=== PATIENT | male | born 1990 | race Caucasian/White ===

== ENCOUNTER 2016-12-01 13:26 | Inpatient (IN) | payer OTHER ==
[2016-12-01 13:38] VITALS: BMI 20.5
--- NOTE | 2016-12-01 14:01 | HP ---
COWS - Scale Resting Pulse: 1= [place] 81-100 Sweatin= Chills/Flushing Restless Observation: 1= Difficult to Sit Still Pupil Size: 0= Normal to Room Light Bone or Joint Aches: 2= Severe Diffuse Aches Runny Nose/ Eye Tearin= Nasal Congestion GI Upset > 30mins: 2= Nausea/Diarrhea Tremor Observation: 1= Tremor [place], Not Seen Yawning Observation: 1= 1-2x During Session Anxiety or Irritability: 1=Feels Anxious/Irritable Goose Flesh Skin: 3=Piloerection COWS Score: 14 Admission ROS BHS - HPI Chief Complaint: I want to stop, maybe go back on suboxone Allergies/Adverse Reactions: Allergies Allergy/AdvReac Type Severity Reaction Status Date / Time codeine Allergy Mild Rash Verified 12/01/16 13:53 History of Present Illness: 26 yo gentleman here for detox from opiates - history of previous detox and rehab, previous treatment with suboxone for 1.5 years and did well but then went to college and program was too far to get to easily and he relapsed. No seizures. Lost about thirty to forty pounds in last few months due to drug use. Exam Limitations: Clinical Condition - Ebola screening Have you traveled outside of the country in the last 21 days: No Have you had contact with anyone from an Ebola affected area: No Have you been sick,other than usual withdrawal symptoms: No Do you have a fever: No - Review of Systems Constitutional: Loss of Appetite, Malaise, Night Sweats, Changes in sleep, Unintentional Wgt. Loss EENT: reports: Nose Congestion Respiratory: reports: No Symptoms reported Cardiac: reports: No Symptoms Reported GI: reports: Poor Appetite, Indigestion : reports: No Symptoms Reported Musculoskeletal: reports: Back Pain, Muscle Pain Integumentary: reports: Rash (mild rash both antecubital space (states due to shooting up)), Other Neuro: reports: Headache Endocrine: reports: No Symptoms Reported Hematology: reports: No Symptoms Reported Psychiatric: reports: Judgement Intact, Mood/Affect Appropiate, Orientated x3, Anxious Other Systems: Reviewed and Negative Patient History - Patient Medical History Hx Anemia: No Hx Asthma: No Hx Chronic Obstructive Pulmonary Disease (COPD): No Hx Cancer: No Hx Cardiac Disorders: No Hx Congestive Heart Failure: No Hx Hypertension: No Hx Hypercholesterolemia: No Hx Pacemaker: No HX Cerebrovascular Accident: No Hx Seizures: No Hx Dementia: No Hx Diabetes: No Hx Gastrointestinal Disorders: No Hx Liver Disease: No Hx Genitourinary Disorders: Yes (hx renal calculi) Hx Sexually Transmitted Disorders: No Hx Renal Disease (ESRD): No Hx Thyroid Disease: No Hx Human Immunodeficiency Virus (HIV): No Hx Hepatitis C: No (not sure) Hx Depression: Yes (hx anxiety ) Hx Suicide Attempt: No Hx Bipolar Disorder: No Hx Schizophrenia: No - Patient Surgical History Past Surgical History: Yes Other Surgical History: lithotritpsy hears ago - PPD History Previous Implant?: Yes Documented Results: Negative w/proof Implanted On Prior [facility] Admission?: No PPD to be Administered?: Yes - Reproductive History Patient is a Female of Child Bearing Age (11 -55 yrs old): No (male) - Smoking Cessation Smoking history: Current every day smoker Have you smoked in the past 12 months: Yes Aproximately how many cigarettes per day: 10 Initiated information on smoking cessation: Yes 'Breaking Loose' booklet given: 12/01/16 (give on floor) - Substance & Tx. History Hx Alcohol Use: No Hx Substance Use: Yes Substance Use Type: Heroin Hx Substance Use Treatment: Yes (hx detox, rehab, suboxone) - Substances Abused Heroin Route: Injection Frequency: Daily Amount used: 20 bags Age of first use: 19 Date of Last Use: 11/30/16 Family Disease History - Family Disease History Family Disease History: Diabetes: Brother, Heart Disease: Father (alive, etoh), Other: Father, Mother (alive, ) Admission Physical Exam S - Vital Signs Vital Signs: Vital Signs - 24 hr 12/01/16 13:35 Temperature 99.0 F Pulse Rate 84 Respiratory 18 Rate Blood Pressure 122/77 - Physical General Appearance: Yes: Nourished, Appropriately Dressed, Mild Distress, Thin, Anxious HEENTM: Yes: Hearing grossly Normal, Normocephalic, Normal Voice, Nasal Congestion Respiratory: Yes: Normal Breath Sounds, No Respiratory Distress Neck: Yes: No masses,lesions,Nodules, Supple Breast: Yes: Breast Exam Deferred Cardiology: Yes: Regular Rhythm, Regular Rate Abdominal: Yes: Flat, Soft Genitourinary: Yes: Within Normal Limits Back: Yes: Normal Inspection Musculoskeletal: Yes: full range of Motion, Gait Steady Extremities: Yes: Normal Inspection, Non-Tender Neurological: Yes: Fully Oriented, Alert, Normal Mood/Affect Integumentary: Yes: Normal Color, Warm, Rash, Track [place] Lymphatic: Yes: Within Normal Limits (faint erythematous rash at sites of injection both arms antecubital space) - Diagnostic (1) Opioid dependence with withdrawal Current Visit: Yes Status: Chronic (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
[2016-12-01] MEDS ORDERED: MENTHOL/PHENOL 1 EACH UD MM PRN (14:04)
[2016-12-01] MEDS ORDERED: MAG HYDROX/AL HYDROX/SIMETH 30 ML UNIT-DOSE CUP PO PRN (14:04)
[2016-12-01] MEDS ORDERED: MAGNESIUM HYDROX 2400MG/30ML ORAL SUSPENSION 30 ML CUP PO PRN (14:04)
[2016-12-01] MEDS ORDERED: guaiFENesin/D-METHORPHAN HB 10 ML UNIT-DOSE CUPS PO PRN (14:04)
[2016-12-01] MEDS ORDERED: LOPERAMIDE HCL 2 MG CAPSULE PO PRN (14:04)
[2016-12-01] MEDS ORDERED: P-EPHED 60MG/TRIPROLIDI 2.5MG TABLET PO PRN (14:04)
[2016-12-01] MEDS ORDERED: ACETAMINOPHEN 325 MG TABLET (FP) PO PRN (14:04)
[2016-12-01] MEDS ORDERED: IBUPROFEN 400 MG TABLET (FP) PO PRN (14:04)
[2016-12-01] MEDS ORDERED: MAGNESIUM CITRATE 300 ML BOTTLE PO PRN (14:04)
[2016-12-01] MEDS ORDERED: METHADONE HCL 10 MG TABLET (FOR DETOX USE ONLY) PO ONE ×2 (14:30→23:00)
[2016-12-01] MEDS: diazePAM 5 MG TABLET PO PRN ×2 (14:57→19:22)
[2016-12-01] MEDS: hydrOXYzine PAMOATE 50 MG CAPSULE (FP) PO PRN (17:24)
[2016-12-01 19:28] LABS: URINE APPEARANCE CLEAR; URINE BILIRUBIN NEGATIVE (NEGATIVE); URINE BLOOD NEGATIVE (NEGATIVE); URINE COLOR YELLOW; URINE GLUCOSE (UA) NEGATIVE (NEGATIVE); URINE KETONE NEGATIVE (NEGATIVE); URINE LEUK ESTERASE NEGATIVE (NEGATIVE); URINE NITRITE NEGATIVE (NEGATIVE); URINE PROTEIN NEGATIVE (NEGATIVE); URINE UROBILINOGEN NEGATIVE E.U./dl (0.2-1.0)
[2016-12-01] MEDS: THIAMINE HCL 100 MG TABLET (FP) PO SCH (22:28)
[2016-12-02] MEDS: diazePAM 5 MG TABLET PO PRN ×5 (05:26→22:47)
[2016-12-02] MEDS ORDERED: METHADONE HCL 10 MG TABLET (FOR DETOX USE ONLY) PO ONE (10:00)
[2016-12-02] MEDS: PRENATAL VITAMINS W/ FOLIC ACID TABLET (FP) PO SCH (10:24)
[2016-12-02] MEDS: NICOTINE POLACRILEX 4 MG GUM BUC PRN ×6 (10:24→20:35)
[2016-12-02 10:50] LABS: MCH 27.9 pg (25.7-33.7); MCHC 33.5 g/dl (32.0-35.9); MEAN CELL VOLUME 83.2 fl (80-96); MEAN PLT VOLUME 9.3 fl (7.5-11.1); PLATELET COUNT 244 K/MM3 (134-434); RDW 13.9 % (11.9-15.9); WHITE BLOOD COUNT 5.6 K/mm3 (4.0-10.0)
[2016-12-02 11:04] LABS: ALBUMIN 3.7 g/dl (3.4-5.0); ANION GAP 8 (8-16); CALCIUM 9.1 mg/dL (8.5-10.1); CO2 28 mmol/L (21-32); CREATININE 0.7 mg/dL (0.7-1.3); GLUCOSE,RANDOM 76 mg/dL (74-106); SGOT/AST 29 U/L (15-37); SGPT/ALT 69 U/L (12-78)
[2016-12-02 11:05] LABS: ALK PHOS 66 U/L (45-117); BILIRUBIN,TOTAL 0.3 mg/dL (0.2-1.0)
--- NOTE | 2016-12-02 11:16 | PN ---
BHS COWS - Scale Resting Pulse: 0= [place] 80 or Below Sweatin=Flushed/Facial Moisture Restless Observation: 1= Difficult to Sit Still Pupil Size: 0= Normal to Room Light Bone or Joint Aches: 2= Severe Diffuse Aches Runny Nose/ Eye Tearin= Runny Nose/Eyes GI Upset > 30mins: 2= Nausea/Diarrhea Tremor Observation of Outstretched Hands: 2= Slight Tremor Visible Yawning Observation: 1= 1-2x During Session Anxiety or Irritability: 2=Irritable/Anxious Goose Flesh Skin: 0=Smooth Skin COWS Score: 14 BHS Progress Note (SOAP) Subjective: Anxiety,nausea,muscle aches/spasm,restless,interrupted sleep Objective: 12/02/16 11:15 Vital Signs - 8 hr 12/02/16 12/02/16 12/02/16 03:32 06:24 09:36 Temperature 96.2 F L 97.2 F L Pulse Rate 72 65 Respiratory 18 16 16 Rate Blood Pressure 104/74 102/73 Laboratory Tests 12/01/16 12/02/16 12/02/16 17:55 07:30 07:30 WBC 5.6 RBC 4.95 Hgb 13.8 Hct 41.2 MCV 83.2 MCHC 33.5 RDW 13.9 Plt Count 244 MPV 9.3 Sodium 140 Potassium 4.4 Chloride 104 Carbon Dioxide 28 Anion Gap 8 BUN 15 Creatinine 0.7 Creat Clearance w eGFR > 60 Random Glucose 76 Calcium 9.1 AST 29 ALT 69 Albumin 3.7 Urine Color Yellow Urine Appearance Clear Urine pH 6.0 Ur Specific [place] 1.024 Urine Protein Negative Urine Glucose (UA) Negative Urine Ketones Negative Urine Blood Negative Urine Nitrite Negative Urine Bilirubin Negative Urine Urobilinogen Negative Ur Leukocyte Esterase Negative labs noted Assessment: 12/02/16 11:16 Withdrawal sx. Plan: Continue detox
[2016-12-02] MEDS: diphenhydrAMINE HCL 50 MG CAPSULE PO PRN (22:29)
[2016-12-02] MEDS: THIAMINE HCL 100 MG TABLET (FP) PO SCH (22:29)
[2016-12-02] MEDS: NICOTINE 14 MG/24 HOURS TOPICAL PATCH TD SCH (22:29)
--- NOTE | 2016-12-02 22:31 | EKG ---
Test Reason : Blood Pressure : / mmHG Vent. Rate : 072 BPM Atrial Rate : 072 BPM P-R Int : 140 ms QRS Dur : 088 ms QT Int : 380 ms P-R-T Axes : 049 043 026 degrees QTc Int : 416 ms NORMAL SINUS RHYTHM NORMAL ECG NO PREVIOUS ECGS AVAILABLE Confirmed by ANUJ CHASE MD ([id number]) on 12/02/2016 10:31:52 PM Referred By: Confirmed By:ANUJ CHASE MD
[2016-12-03] MEDS: diazePAM 5 MG TABLET PO PRN ×4 (05:32→20:54)
[2016-12-03] MEDS: NICOTINE POLACRILEX 4 MG GUM BUC PRN ×6 (07:38→23:50)
[2016-12-03] MEDS ORDERED: METHADONE HCL 5 MG TABLET (FOR DETOX USE ONLY) PO ONE (10:00)
[2016-12-03] MEDS ORDERED: ONDANSETRON *ODT* 4 MG TABLET SL PRN (10:15)
[2016-12-03] MEDS: PRENATAL VITAMINS W/ FOLIC ACID TABLET (FP) PO SCH (10:19)
[2016-12-03] MEDS: NICOTINE 14 MG/24 HOURS TOPICAL PATCH TD SCH (10:20)
--- NOTE | 2016-12-03 10:20 | PN ---
BHS COWS - Scale Resting Pulse: 1= [place] 81-100 Sweatin=Flushed/Facial Moisture Restless Observation: 1= Difficult to Sit Still Pupil Size: 0= Normal to Room Light Bone or Joint Aches: 2= Severe Diffuse Aches Runny Nose/ Eye Tearin= Runny Nose/Eyes GI Upset > 30mins: 2= Nausea/Diarrhea Tremor Observation of Outstretched Hands: 2= Slight Tremor Visible Yawning Observation: 1= 1-2x During Session Anxiety or Irritability: 2=Irritable/Anxious Goose Flesh Skin: 0=Smooth Skin COWS Score: 15 BHS Progress Note (SOAP) Subjective: Sweating,anxiety,tremors,interrupted sleep,restless. Objective: 12/03/16 10:19 Vital Signs - 8 hr 12/03/16 12/03/16 03:49 06:14 Temperature 96.1 F L Pulse Rate 85 Respiratory 18 16 Rate Blood Pressure 104/70 Laboratory Tests 12/01/16 12/02/16 12/02/16 17:55 07:30 07:30 WBC 5.6 RBC 4.95 Hgb 13.8 Hct 41.2 MCV 83.2 MCHC 33.5 RDW 13.9 Plt Count 244 MPV 9.3 Sodium 140 Potassium 4.4 Chloride 104 Carbon Dioxide 28 Anion Gap 8 BUN 15 Creatinine 0.7 Creat Clearance w eGFR > 60 Random Glucose 76 Calcium 9.1 Total Bilirubin 0.3 AST 29 ALT 69 Alkaline Phosphatase 66 Total Protein 7.0 Albumin 3.7 Urine Color Yellow Urine Appearance Clear Urine pH 6.0 Ur Specific [place] 1.024 Urine Protein Negative Urine Glucose (UA) Negative Urine Ketones Negative Urine Blood Negative Urine Nitrite Negative Urine Bilirubin Negative Urine Urobilinogen Negative Ur Leukocyte Esterase Negative RPR Titer 12/02/16 07:30 WBC RBC Hgb Hct MCV MCHC RDW Plt Count MPV Sodium Potassium Chloride Carbon Dioxide Anion Gap BUN Creatinine Creat Clearance w eGFR Random Glucose Calcium Total Bilirubin AST ALT Alkaline Phosphatase Total Protein Albumin Urine Color Urine Appearance Urine pH Ur Specific [place] Urine Protein Urine Glucose (UA) Urine Ketones Urine Blood Urine Nitrite Urine Bilirubin Urine Urobilinogen Ur Leukocyte Esterase RPR Titer Nonreactive labs noted Assessment: 12/03/16 10:20 Withdrawal sx. Plan: Continue detox
[2016-12-03] MEDS ORDERED: ONDANSETRON *ODT* 4 MG TABLET SL ONE (10:41)
--- NOTE | 2016-12-03 11:13 | CONSULT ---
[facility] Psychiatric Consult - Data Date of interview: 12/03/16 Admission source: [facility] Identifying data: First admission to [facility] for this 26 y/o male seeking detox treatment for heroin dependence.Patient is single without children ,domiciled and currently unemployed.No financial assistance reported. Substance Abuse History: - Smoking Cessation. Smoking history: Current every day smoker. Have you smoked in the past 12 months: Yes. Aproximately how many cigarettes per day: 10. Initiated information on smoking cessation: Yes. ' Breaking Loose' booklet given: 12/01/16 (give on floor). - Substance & Tx. History. Hx Alcohol Use: No. Hx Substance Use: Yes. Substance Use Type: Heroin. Hx Substance Use Treatment: Yes (hx detox, rehab, suboxone). - Substances Abused. Heroin. Route: Injection. Frequency: Daily. Amount used: 20 bags. Age of first use: 19. Date of Last Use: 11/30/16. Confirmed by patient. Medical History: History of GERD and renal calculi. Psychiatric History: No history of psychiatric hospitalizations.Brief contact with Psychiatry ([facility]D care) approximately eight years ago to address anxiety under a regimen of benzodiazepines (klonopin later replaced with xanax).Lost to follow up.Mr Payne indicates that he has not been managed by psychiatrists/ therapists for years with the exception of a short period of suboxone maintenance.Instead,he reportedly immersed himself deeper into heroin abuse.Patient denies history of suicide attempts. Physical/Sexual Abuse/Trauma History: Patient denies. Additional Comment: Urine Drug Screen Results: OPI-Opiates.Noted. Mental Status Exam - Mental Status Exam Alert and Oriented to: Time, Place, Person Cognitive Function: Good Patient Appearance: Well Groomed Mood: Withdrawn, Anxious, Apprehensive Affect: Mood Congruent Patient Behavior: Fatigued, Appropriate, Cooperative (well mannered) Speech Pattern: Clear, Appropriate (articulate) Voice Loudness: Normal Thought Process: Goal Oriented Thought Disorder: Not Present Hallucinations: Denies Suicidal Ideation: Denies Homicidal Ideation: Denies Insight/Judgement: Poor Sleep: Poorly, Difficulty falling asleep Appetite: Fair Muscle strength/Tone: Normal Gait/Station: Normal Psychiatric Findings - Problem List ([place] 1, 2,3) (1) Opioid dependence with withdrawal Current Visit: Yes Status: Acute (2) Nicotine dependence Current Visit: Yes Status: Acute Qualifiers: Nicotine product type: cigarettes Substance use status: uncomplicated Qualified Code(s): F17.210 - Nicotine dependence, cigarettes, uncomplicated (3) Substance induced mood disorder Current Visit: Yes Status: Acute (4) Renal calcinosis Current Visit: Yes Status: Chronic (5) Insomnia Current Visit: Yes Status: Acute - Initial Treatment Plan Initial Treatment Plan: Psychoeducation.Detoxification in progress.Insomnia is addressed with remeron 15 mg po hs.Side effects/benefits discussed with the patient.Patient agrees with this careplan.Observation.
[2016-12-03] MEDS: cloNIDine HCL 0.1 MG TABLET PO SCH ×2 (11:38→22:19)
[2016-12-03] MEDS: hydrOXYzine PAMOATE 50 MG CAPSULE (FP) PO PRN ×2 (14:54→19:42)
[2016-12-03] MEDS: MIRTAZAPINE 15 MG TABLET (FP) PO SCH (22:19)
[2016-12-03] MEDS: THIAMINE HCL 100 MG TABLET (FP) PO SCH (22:19)
[2016-12-03] MEDS: diphenhydrAMINE HCL 50 MG CAPSULE PO PRN (22:19)
[2016-12-04] MEDS: diazePAM 5 MG TABLET PO PRN ×3 (01:57→10:13)
[2016-12-04] MEDS: NICOTINE POLACRILEX 4 MG GUM BUC PRN ×6 (05:50→22:23)
[2016-12-04] MEDS ORDERED: METHADONE HCL 5 MG TABLET (FOR DETOX USE ONLY) PO ONE (10:00)
[2016-12-04] MEDS: NICOTINE 14 MG/24 HOURS TOPICAL PATCH TD SCH (10:13)
[2016-12-04] MEDS: PRENATAL VITAMINS W/ FOLIC ACID TABLET (FP) PO SCH (10:13)
[2016-12-04] MEDS: cloNIDine HCL 0.1 MG TABLET PO SCH ×2 (10:14→22:21)
--- NOTE | 2016-12-04 10:38 | PN ---
BHS Progress Note (SOAP) Subjective: Sweating,interrupted sleep,restless Objective: 12/04/16 10:36 Vital Signs - 8 hr 12/04/16 12/04/16 12/04/16 03:24 06:02 09:29 Temperature 97.5 F L 96.8 F L Pulse Rate 94 H 90 Respiratory 18 18 20 Rate Blood Pressure 98/69 100/71 Laboratory Tests 12/01/16 12/02/16 12/02/16 17:55 07:30 07:30 WBC 5.6 RBC 4.95 Hgb 13.8 Hct 41.2 MCV 83.2 MCHC 33.5 RDW 13.9 Plt Count 244 MPV 9.3 Sodium Potassium Chloride Carbon Dioxide Anion Gap BUN Creatinine Creat Clearance w eGFR Random Glucose Calcium Total Bilirubin AST ALT Alkaline Phosphatase Total Protein Albumin Urine Color Yellow Urine Appearance Clear Urine pH 6.0 Ur Specific [place] 1.024 Urine Protein Negative Urine Glucose (UA) Negative Urine Ketones Negative Urine Blood Negative Urine Nitrite Negative Urine Bilirubin Negative Urine Urobilinogen Negative Ur Leukocyte Esterase Negative RPR Titer Hepatitis C Antibody 0.2 12/02/16 12/02/16 07:30 07:30 WBC RBC Hgb Hct MCV MCHC RDW Plt Count MPV Sodium 140 Potassium 4.4 Chloride 104 Carbon Dioxide 28 Anion Gap 8 BUN 15 Creatinine 0.7 Creat Clearance w eGFR > 60 Random Glucose 76 Calcium 9.1 Total Bilirubin 0.3 AST 29 ALT 69 Alkaline Phosphatase 66 Total Protein 7.0 Albumin 3.7 Urine Color Urine Appearance Urine pH Ur Specific [place] Urine Protein Urine Glucose (UA) Urine Ketones Urine Blood Urine Nitrite Urine Bilirubin Urine Urobilinogen Ur Leukocyte Esterase RPR Titer Nonreactive Hepatitis C Antibody labs noted Assessment: 12/04/16 10:36 Withdrawal sx. Plan: Continue detox
[2016-12-04] MEDS ORDERED: NICOTINE 21 MG/24 HOURS TOPICAL PATCH TD SCH (11:01)
[2016-12-04] MEDS: CYCLOBENZAPRINE HCL 10 MG TABLET (FP) PO SCH ×2 (14:34→22:21)
[2016-12-04] MEDS: hydrOXYzine PAMOATE 50 MG CAPSULE (FP) PO PRN ×2 (17:09→22:21)
[2016-12-04] MEDS: MIRTAZAPINE 15 MG TABLET (FP) PO SCH (22:21)
[2016-12-04] MEDS: THIAMINE HCL 100 MG TABLET (FP) PO SCH (22:21)
[2016-12-05] MEDS: CYCLOBENZAPRINE HCL 10 MG TABLET (FP) PO SCH ×3 (06:20→22:29)
[2016-12-05] MEDS ORDERED: METHADONE HCL 10 MG TABLET (FOR DETOX USE ONLY) PO ONE (10:00)
[2016-12-05] MEDS: cloNIDine HCL 0.1 MG TABLET PO SCH ×2 (10:36→22:29)
[2016-12-05] MEDS: NICOTINE POLACRILEX 4 MG GUM BUC PRN ×3 (10:37→20:25)
[2016-12-05] MEDS: hydrOXYzine PAMOATE 50 MG CAPSULE (FP) PO PRN ×2 (10:37→16:41)
[2016-12-05] MEDS: PRENATAL VITAMINS W/ FOLIC ACID TABLET (FP) PO SCH (10:38)
--- NOTE | 2016-12-05 17:03 | PN ---
BHS Progress Note (SOAP) Subjective: Sweating,interrupted sleep,restless,muscle aches/spasm Objective: 12/05/16 17:02 Vital Signs - 8 hr 12/05/16 12/05/16 09:22 13:12 Temperature 97.6 F 97.8 F Pulse Rate 96 H 98 H Respiratory 20 18 Rate Blood Pressure 104/65 100/74 Assessment: 12/05/16 17:02 Withdrawal sx. Plan: Continue detox
[2016-12-05] MEDS: THIAMINE HCL 100 MG TABLET (FP) PO SCH (22:29)
[2016-12-05] MEDS: MIRTAZAPINE 15 MG TABLET (FP) PO SCH (22:29)
[2016-12-06] MEDS: CYCLOBENZAPRINE HCL 10 MG TABLET (FP) PO SCH (05:17)
[2016-12-06] MEDS: hydrOXYzine PAMOATE 50 MG CAPSULE (FP) PO PRN (05:17)
[2016-12-06] MEDS ORDERED: METHADONE HCL 5 MG TABLET (FOR DETOX USE ONLY) PO ONE (06:00)
[2016-12-06 06:32] VITALS: TEMP 97.9
[2016-12-06 07:21] VITALS: BP 98/72; PULSE 104
--- NOTE | 2016-12-06 07:39 | PN ---
S Progress Note (SOAP) Subjective: ALERT,NO COMPLAINT Objective: 12/06/16 07:37 Vital Signs Temperature 97.9 F 12/06/16 06:31 Pulse Rate 104 H 12/06/16 07:21 Respiratory Rate 18 12/06/16 06:31 Blood Pressure 98/72 12/06/16 07:21 O2 Sat by Pulse Oximetry (%) Assessment: 12/06/16 07:37 DETOX COMPLETED,NO WITHDRAWAL SYMPTOM Plan: DISCHARGE TODAY,FOLLOW UP WITH AFTER CARE PROGRAM ARRANGEMENT
--- NOTE | 2016-12-06 07:42 | DS ---
[facility] Detox Discharge Summary Admission Date: 12/01/16 Discharge Date: 12/06/16 - History Present History: Opioid Dependence Additional Comments: FOLLOW UP WITH AFTER CARE PROGRAM ARRANGEMENT Pertinent Past History: RENAL CALCULUS NICOTINE DEPENDENCE - Physical Exam Results Vital Signs: Vital Signs Temperature 97.9 F 12/06/16 06:31 Pulse Rate 104 H 12/06/16 07:21 Respiratory Rate 18 12/06/16 06:31 Blood Pressure 98/72 12/06/16 07:21 O2 Sat by Pulse Oximetry (%) Pertinent Admission Physical Exam Findings: WITHDRAWAL SYMPTOM - Treatment Hospital Course: Detox Protocol Followed, Detoxed Safely, Responded well, Discharged Condition Good Patient has Accepted a Rehab Referral to: DECLINED - Medication Discharge Medications: Ambulatory Orders NK [No Known Home Medication] 12/02/16 - Diagnosis (1) Insomnia Current Visit: Yes Status: Acute (2) Nicotine dependence Current Visit: Yes Status: Acute Qualifiers: Nicotine product type: cigarettes Substance use status: uncomplicated Qualified Code(s): F17.210 - Nicotine dependence, cigarettes, uncomplicated (3) Opioid dependence with withdrawal Current Visit: Yes Status: Acute (4) Substance induced mood disorder Current Visit: Yes Status: Acute (5) Renal calcinosis Current Visit: Yes Status: Chronic - AMA Did Patient Leave Against Medical Advice: No
== END 2016-12-06 07:30 | disposition home or self-care (01) | DRG 773 ==
LOC: YASAS 13:26 → Y3N 14:14
PROVIDERS: ADMIT Internal Medicine; ATTEND Internal Medicine
PROC: HZ2ZZZZ Detoxification Services for Substance Abuse Treatment (ICD-10-PCS; principal; 2016-12-01)
DX: F11.23 Opioid dependence with withdrawal (principal); F17.210 Nicotine dependence, cigarettes, uncomplicated; F19.24 Other psychoactive substance dependence with psychoactive substance-induced mood disorder; G47.00 Insomnia, unspecified; Z87.442 Personal history of urinary calculi
CPT/HCPCS: 36415; 80053; 81003; 85027; 86593; 93005; 93010

== ENCOUNTER 2023-06-29 08:20 | Emergency (ER) | payer BC, OTHER ==
[2023-06-29 08:31] VITALS: BMI 28.1
[2023-06-29] MEDS ORDERED: FAMOTIDINE 20 MG/50 ML IVPB 20 MG/50 ML MG IVPB ONE ×2 (08:54→09:05)
[2023-06-29] MEDS ORDERED: SODIUM CHLORIDE 0.9% 500 ML INFUS.BAG IV ONE (08:54)
[2023-06-29] MEDS ORDERED: ONDANSETRON 4 MG/2 ML VIAL IVPB ONE (08:54)
[2023-06-29] MEDS ORDERED: ONDANSETRON 4 MG/2 ML VIAL ONE (09:05)
[2023-06-29 09:14] LABS: HEMATOCRIT 43.5 % (35.4-49); HEMOGLOBIN 14.9 GM/dL (11.7-16.9); MCH 27.7 pg (25.7-33.7); MCHC 34.3 g/dl (32.0-35.9); MEAN CELL VOLUME 80.9 fl (80-96); MEAN PLT VOLUME 8.4 fl (7.5-11.1); PLATELET COUNT 370 10^3/uL (134-434); RBC 5.38 M/mm3 (4.00-5.60); RDW 13.7 % (11.9-15.9); WHITE BLOOD COUNT 8.6 K/mm3 (4.0-10.0)
[2023-06-29 09:39] LABS: POTASSIUM 4.1 mmol/L (3.5-5.1)
[2023-06-29 09:41] LABS: ALBUMIN 4.2 g/dl (3.4-5.0); CALCIUM 10.3 mg/dL (8.5-10.1)
[2023-06-29 09:42] LABS: BLOOD UREA NITROGEN 14.7 mg/dL (7-18)
[2023-06-29 09:42] LABS: INR 1.1 (0.83-1.09); PROTHROMBIN TIME (PATIENT) 12.8 SEC (9.7-13.0)
[2023-06-29 09:45] LABS: ACTIVATED PTT 33.9 SECONDS (25.2-36.5)
[2023-06-29 09:46] LABS: TOT PROT 8.5 g/dl (6.4-8.2)
[2023-06-29 09:47] LABS: BILIRUBIN,TOTAL 0.5 mg/dL (0.2-1)
[2023-06-29 11:00] VITALS: BP 130/88; PULSE 86; RESP 20; TEMP 97.6
[2023-06-29 11:57] LABS: POTASSIUM 4.7 mmol/L (3.5-5.1)
[2023-06-29 11:59] LABS: CALCIUM 9.6 mg/dL (8.5-10.1)
[2023-06-29 12:00] LABS: ALBUMIN 3.9 g/dl (3.4-5.0); BLOOD UREA NITROGEN 12.4 mg/dL (7-18)
[2023-06-29 12:03] LABS: BILIRUBIN,DIRECT 0.1 mg/dL (0.0-0.2); CREATININE 0.9 mg/dL (0.55-1.3)
[2023-06-29 12:04] LABS: TOT PROT 7.6 g/dl (6.4-8.2)
[2023-06-29 12:05] LABS: BILIRUBIN,TOTAL 0.4 mg/dL (0.2-1)
== END 2023-06-29 12:30 | disposition home or self-care (01) ==
LOC: JER 08:20
PROC: 3E033GC Introduction of Other Therapeutic Substance into Peripheral Vein, Percutaneous Approach (ICD-10-PCS; principal; 2023-06-29)
PROC: 3E033GC Introduction of Other Therapeutic Substance into Peripheral Vein, Percutaneous Approach (ICD-10-PCS; 2023-06-29)
DX: R11.2 Nausea with vomiting, unspecified (principal); R42 Dizziness and giddiness; R19.7 Diarrhea, unspecified; R10.13 Epigastric pain; R63.0 Anorexia
CPT/HCPCS: 36415; 74021-TC-FY; 80048; 80053; 80061; 80076; 82150; 83690; 84484; 85027; 85610; 85730; 93005; 93010; 99285-25